=== PATIENT | female | born 1965 | race Caucasian/White ===

== ENCOUNTER 2018-08-14 22:55 | Emergency (ER) | payer SELFPAY ==
[~2018-08-14] VITALS: Ht 162.6 cm; Wt 98.2 kg
[2018-08-14 23:12] VITALS: Ht 162.6 cm; Wt 98.2 kg
[2018-08-15] MEDS ORDERED: KETOROLAC 60 MG INJ IM STA (05:04)
[2018-08-15] MEDS ORDERED: traMADol 50 MG TAB PO ONE (05:30)
[2018-08-15] MEDS ORDERED: DIAZEPAM 5 MG TAB PO ONE (05:30)
[2018-08-15] MEDS ORDERED: CYCL10TA7 PO (06:11)
[2018-08-15] MEDS ORDERED: TRAM50TA2 PO (06:11)
[2018-08-15] MEDS ORDERED: NAPR-985 PO (06:11)
[2018-08-15 06:43] VITALS: BP 113/71; PULSE 66; RESP 18
--- NOTE | 2018-08-25 03:21 | ERD ---
ER Documentation Chief Complaint Chief Complaint left neck pain to the back x 2 weeks HPI History of Present Illness: Patient coming in today with complaint of right- sided neck pain that is been present for 2 weeks. Radiation pain to trapezius and left arm. Patient denies shortness of breath, respiratory distress, chest pain, dizziness, weakness. Oriented patient denies any other associated symptoms. At home pharmacological/nonpharmacological treatment for symptoms: Denies Denies social concerns; Denies recent foreign travel ROS All systems reviewed and are negative except as per history of present illness. Medications Home Meds Active Scripts Tramadol HCl (Tramadol HCl) 50 Mg Tablet, 50 MG PO Q6 PRN for PAIN, #15 TAB Prov:BARRY BELCHER V MUSIC MANAGER 08/15/18 Naproxen* (Naprosyn*) 500 Mg Tablet, 500 MG PO BID PRN for PAIN AND/OR INFLAMMATION, #30 TAB Prov:BARRY BELCHER V MUSIC MANAGER 08/15/18 Cyclobenzaprine Hcl* (Cyclobenzaprine Hcl*) 10 Mg Tablet, 10 MG PO TID for NECK MUSCLE SPASM, #15 TAB Prov:BARRY BELCHER V MUSIC MANAGER 08/15/18 Allergies Allergies: Coded Allergies: No Known Allergy (Unverified , 08/15/18) PMhx/Soc Medical and Surgical Hx: pt denies Surgical Hx Hx Miscellaneous Medical Probl: Yes (DM) Hx Alcohol Use: No Hx Substance Use: No Hx Tobacco Use: No Smoking Status: Never smoker FmHx Family History: diabetes; No coronary disease Physical Exam Physical Exam Const: No acute distress Head: Atraumatic Eyes: Normal Conjunctiva ENT: Normal External Ears, Nose and Mouth. Neck: Full range of motion. No meningismus. Resp: Clear to auscultation bilaterally Cardio: Regular rate and rhythm, no murmurs Abd: Soft, non tender, non distended. Normal bowel sounds Skin: No petechiae or rashes Back: No midline or flank tenderness. Tenderness to palpation over left trapezius muscle and left side of neck. Mild grimacing noted. Ext: No cyanosis, or edema Neur: Awake and alert Psych: Normal Mood and Affect Results 24 hrs Current Medications Medications Dose Sig/Kaitlin Start Time Status Last (Trade) Ordered Route PRN Stop Time Admin Dose Reason Admin Ketorolac 60 mg ONCE STAT 08/15/18 DC 08/15/18 Tromethamine IM 05:04 08/15/18 05:37 (Toradol) 05:06 Diazepam 5 mg ONCE ONCE 08/15/18 DC 08/15/18 (Valium) PO 05:30 08/15/18 05:37 05:31 Tramadol 50 mg ONCE ONCE 08/15/18 DC 08/15/18 HCl PO 05:30 08/15/18 05:37 (Ultram) 05:31 Procedures/MDM ED course includes a thorough examination and history. Medications: Ketorolac for pain/inflammation, tramadol for moderate to severe pain, Valium for muscle spasm Imaging: EKG Labs: -- EKG completed at 06: 11: Rate/Rhythm: Bradycardia sinus Rhythm. Ventricular rate 59 QRS, ST, T-waves: No changes consistent w/ acute ischemia Impression: No evidence of ischemia or arrhythmia Low suspicion for life-threatening medical emergency. Low suspicion for neurological or cardiopulmonary emergency that requires hospitalization or immediate surgical intervention. Otherwise healthy patient presenting with constellation of symptoms likely representing uncomplicated muscle spasm/muscle strain/neck pain secondary to home stressors as characterized by history, physical exam findings. No respiratory distress, otherwise relatively well appearing and nontoxic. Patient educated on diagnoses, prescriptions, follow-up care, return precautions. Strict return precautions given for worsening condition; questions answered discharge. Disposition for discharge with followup in 2 days with PCP/clinic. Departure Diagnosis: Primary Impression: Muscle strain Additional Impression: Neck pain Condition: Stable Patient Instructions: Muscle Spasm, Neck Pain, No Trauma [facility] Usted se goodman hecho un examen mdico de control que le indica que no est en sun condicin que requiera tratamiento urgente en el Departamento de Emergencia. Un estudio ms profundo y el tratamiento de seaman condicin pueden esperar sin ningn riesgo hasta que usted sea atendida/o en el consultorio de seaman mdico o sun clnica. Es responsabilidad suya arreglar sun mercedes para el seguimiento del yosi. MANEJO DE CONDICIONES NO URGENTES EN EL FUTURO 1) Si usted tiene un mdico de atencin primaria: Usted debera llamar a seaman mdico de atencin primaria antes de venir al departamento de emergencia. Despus de las horas de consultorio, seaman doctor o seaman asociado/a est disponible por telfono. El mdico o enfermero de daniella en el servicio telefnico puede asesorarle por xavier medio para atender el problema, o yosi contrario se puede programar sun mercedes. 2) Si usted no tiene un mdico de atencin primaria: Llame al mdico o clnica de referencia que aparece abajo shikha las horas de consultorio para hacer sun mercedes para que le vean. CLINICAS: [facility] [phone] [facility] [phone] [facility] [phone] [place] [phone] [place] [id number] [phone] [facility]. [phone] [address] . [facility] () Janusz se goodman hecho un examen mdico de control que le indica que no est en sun condicin que requiera tratamiento urgente en el Departamento de Emergencia. Un estudio ms profundo y el tratamiento de seaman condicin pueden esperar sin ningn riesgo hasta que usted sea atendida/o en el consultorio de seaman mdico o sun clnica. Es responsabilidad suya arreglar sun mercedes para el seguimiento del yosi. MANEJO DE CONDICIONES NO URGENTES EN EL FUTURO 1) Si usted tiene un mdico de atencin primaria: Usted debera llamar a seaman mdico de atencin primaria antes de venir al departamento de emergencia. Despus de las horas de consultorio, seaman doctor o seaman asociado/a est disponible por telfono. El mdico o enfermero de daniella en el servicio telefnico puede asesorarle por xavier medio para atender el problema, o yosi contrario se puede programar sun mercedes. 2) Si usted no tiene un mdico de atencin primaria: Llame al mdico o condado institucions de referencia que aparece abajo shikha las horas de consultorio para hacer sun mercedes para que le vean. SI USTED NO PUEDE PAGAR PARA VINEET UN MEDICO puede ir a: [facility] [address] [place] [address] [facility] [address] [place] [address] [facility] [address] [place] [address] [facility] [address] [place], [place] [id number] Additional Instructions: Muchas ruthy por permitirnos participar en seaman cuidado. Seaman bonifacio y seguridad es nuestra principal prioridad en [facility]. Es importante leer todas las instrucciones de richie y la educacin que se proporcionan en seaman paquete de richie. Llame a seaman mdico de atencin primaria MAANA para sun mercedes shikha los prximos 2 a 4 neff y traiga toda la informacin y los medicamentos recetados. Llene las recetas y siga exactamente las instrucciones de la etiqueta. Naprosyn es un medicamento antiinflamatorio / para el dolor; [place] no te frank sueo ni sueo. El tramadol es un opiceo para el dolor moderado a olga; No opere maquinaria pesada, lexi medicamento puede causarle somnolencia. Ciclobenzaprina fan relajante muscular; Lexi medicamento puede causarle sueo. Si los sntomas empeoran y seaman proveedor no est disponible, regrese inmediatamente al Departamento de Emergencias. Regrese a la andrew de emergencias para el dolor en el pecho, dificultad para respirar, palpitaciones, mareos, debilidad, episodios sincopales. ---- Thank you very much for allowing us to participate in your care. Your health and safety is our top priority at [facility]. It is important to read all discharge instructions and education provided in your discharge packet. Call your primary care doctor TOMORROW for an appointment during the next 2-4 days and bring all the information and medications prescribed. Have prescriptions filled and follow precisely the directions on the label. Naprosyn is a anti-inflammatory/pain medication; this will not make you sleepy or drowsy. Tramadol is an opiate for moderate to severe pain; do not operate heavy machinery, this medication may make you drowsy. Cyclobenzaprine as a musc le relaxer; this medication may make you drowsy. If the symptoms get worse and your provider is unavailable, return to the [facility] Department immediately. Return to ER for chest pain, shortness of breath, palpitations, dizziness, weakness, syncopal episodes. BARRY BELCHER NP Aug 25, 2018 03:21
== END 2018-08-15 06:44 | disposition home or self-care (01) ==
LOC: FTE 22:55
DX: S16.1XXA Strain of muscle, fascia and tendon at neck level, initial encounter (principal); X58.XXXA Exposure to other specified factors, initial encounter; Y92.9 Unspecified place or not applicable
CPT/HCPCS: 93005; 96372; 99284; J1885